=== PATIENT | male | born 1950 ===

== ENCOUNTER 2017-01-03 12:42 | Emergency (ER) | payer MEDICARE, OTHER ==
[2017-01-03 12:48] VITALS: BP 128/76
[2017-01-03] MEDS ORDERED: Sodium Chloride 0.9% 10 ML Syringe FLUSH PRN (12:58)
[2017-01-03] MEDS ORDERED: Sodium Chloride 0.9% 500 ML IV ONE (13:06)
--- NOTE | 2017-01-03 13:08 | EDM.PDOC ---
ED HPI GENERAL MEDICAL PROBLEM - General Chief Complaint: Abdominal Pain Stated Complaint: [facility] Time Seen by Provider: 01/03/17 12:48 Source of Information: Reports: Patient History Limitations: Reports: No Limitations - History of Present Illness INITIAL COMMENTS - FREE TEXT/NARRATIVE: 58-year-old male presents via [facility] for evaluation treatment of right lower quadrant abdominal pain radiating to the right flank and back. Reports that the pain started suddenly today. Reports early this morning he had pain that lasted about 30-45 minutes but then resolved on its own. States the pain then came back and has been constant since. He was given 2 mg of Dilaudid and 4 mg of Zofran en route to the ER. Reports that his pain is now significantly improved. He denies any pain radiating to the groin. States he's never had anything like this before. Denies any associated fevers, chills, coughs, dysuria, hematuria, diarrhea or constipation. Reports nausea and vomiting from the pain. States he has vomited 12 times today. Does not recall his last bowel movement. Denies any previous abdominal surgeries. Onset: Today, Sudden Location: Reports: Abdomen (RLQ), Other (right flank) Improves with: Reports: Medication Treatments ASSISTANT COMMUNITY DIRECTOR: Reports: IV/IO, Other (see below) (2mg Dilaudid and 4mg Zofran) Other Treatments ASSISTANT COMMUNITY DIRECTOR: Zofran 4 mg IV, Dilaudid 2 mg IV and 500 ml of NS Right Lower Abdominal Pain Score (Numeric/FACES): 1 - Related Data Allergies Allergy/AdvReac Type Severity Reaction Status Date / Time No Known Allergies Allergy Verified 01/03/17 12:44 Home Meds: Home Meds Acetaminophen/oxyCODONE [Percocet 325-5 MG] 1 tab PO Q4H PRN #20 tablet [Rx] Tamsulosin [Flomax] 0.4 mg PO BEDTIME 01/03/17 [History] Past Medical History Genitourinary History: Reports: Prostate Disorder Social & Family History - Tobacco Use Smoking Status *Q: Current Every Day Smoker Years of Tobacco use: 50 Packs/Tins Daily: 0.5 - Recreational Drug Use Recreational Drug Use: No ED ROS GENERAL - Review of Systems Review Of Systems: See Below Constitutional: Denies: Fever, Chills Respiratory: Denies: Cough GI/Abdominal: Reports: Abdominal Pain (RLQ), Nausea, Vomiting : Reports: Flank Pain (right). Denies: Dysuria, Hematuria ED EXAM, RENAL/ - Physical Exam Exam: See Below Exam Limited By: No Limitations General Appearance: Alert, WD/WN, No Apparent Distress Throat/Mouth: Normal Inspection, Normal Voice, No Airway Compromise Respiratory/Chest: No Respiratory Distress, Lungs Clear, Normal Breath Sounds Cardiovascular: Normal Peripheral Pulses, Regular Rate, Rhythm, No Murmur GI/Abdominal: Normal Bowel Sounds, Soft, Tender (RLQ). No: Distended, Guarding Back Exam: Normal Inspection Neurological: Alert, Oriented, Normal Cognition Psychiatric: Normal Affect, Normal Mood Skin Exam: Warm, Dry Course - Vital Signs Last Recorded V/S: Last Vital Signs Temp 36.7 C 01/03/17 12:44 Pulse 72 01/03/17 12:44 Resp 10 L 01/03/17 12:44 BP 128/76 01/03/17 12:44 Pulse Ox 96 01/03/17 12:44 - Orders/Labs/Meds Labs: Laboratory Tests 01/03/17 01/03/17 Range/Units 13:15 13:15 WBC 14.37 H (4.23-9.07) K/mm3 RBC 4.98 (4.63-6.08) M/mm3 Hgb 16.3 (13.7-17.5) gm/L Hct 47.7 (40.1-51.0) % MCV 95.8 H (79.0-92.2) fl MCH 32.7 H (25.7-32.2) pg MCHC 34.2 (32.2-35.5) g/dl RDW Std Deviation 45.2 H (35.1-43.9) fL Plt Count 229 (163-337) K/mm3 MPV 9.9 (9.4-12.3) fl Neutrophils % (Manual) 80 H (40-60) % Band Neutrophils % 0 (0-10) % Lymphocytes % (Manual) 19 L (20-40) % Atypical Lymphs % 0 % Monocytes % (Manual) 1 L (2-10) % Eosinophils % (Manual) 0 L (0.8-7.0) % Basophils % (Manual) 0 L (0.2-1.2) Platelet Estimate Adequate RBC Morph Comment Not Reportable Sodium 142 (136-145) mEq/L Potassium 4.8 (3.5-5.1) mEq/L Chloride 108 H (98-107) mEq/L Carbon Dioxide 27 (21-32) mEq/L Anion Gap 11.8 (5-15) BUN 21 H (7-18) mg/dL Creatinine 1.2 (0.7-1.3) mg/dL Est Cr Clr Drug Dosing 53.17 mL/min Estimated GFR (MDRD) > 60 (>60) mL/min BUN/Creatinine Ratio 17.5 (14-18) Glucose 104 (80-115) mg/dL Calcium 8.8 (8.5-10.1) mg/dL Total Bilirubin 0.4 (0.2-1.0) mg/dL AST 21 (15-37) U/L ALT 21 (16-63) U/L Alkaline Phosphatase 85 (46-116) U/L C-Reactive Protein < 0.2 (<1.0) mg/dL Total Protein 7.3 (6.4-8.2) g/dl Albumin 3.5 (3.4-5.0) g/dl Globulin 3.8 gm/dL Albumin/Globulin Ratio 0.9 L (1-2) Meds: Medications Discontinued Medications Generic Name Dose Route Start Last Admin Trade Name Sukhi PRN Reason Stop Dose Admin Hydromorphone HCl 1 mg 01/03/17 13:37 01/03/17 13:43 Dilaudid IVPUSH 01/03/17 13:38 1 mg ONETIME ONE Administration Sodium Chloride 500 mls @ 500 mls/hr 01/03/17 13:06 01/03/17 13:27 Normal Saline IV 01/03/17 14:05 500 mls/hr ONETIME ONE Administration Sodium Chloride 1,000 mls @ 100 mls/hr 01/03/17 14:19 01/03/17 15:30 Normal Saline IV 01/04/17 00:18 100 mls/hr ONETIME ONE Administration Ketorolac Tromethamine 30 mg 01/03/17 15:10 01/03/17 15:17 Toradol IVPUSH 01/03/17 15:11 30 mg ONETIME ONE Administration Sodium Chloride 10 ml 01/03/17 12:58 01/03/17 13:29 Saline Flush FLUSH 10 ml ASDIRECTED PRN Administration Keep Vein Open - Radiology Interpretation Free Text/Narrative:: CT of the abdomen and pelvis without IV or oral contrast impression per V grad: 3 x 5 distantly obstructing right ureteral calculus at the UV junction associated with moderate proximal hydronephrosis ureteral nephrosis. Local ice thickening of the ureteral wall possibly related to inflammation demonstrated adjacent to the calculus. 5 mm nonobstructing intrarenal calculus. Left upper pole renal cyst. Moderate prostatomegaly. CT Results Date: 01/03/17 - Re-Assessments/Exams Free Text/Narrative Re-Assessment/Exam: 01/03/17 15:[address] returned. I reviewed these with the patient. Stone is near the UVJ and will likely pass on its own. I will have him follow-up with urology for the stone and his prostate. Will discharge home with pain medication and have him continue to take his flomax. Instructed to drink plenty of fluids. Departure - Departure Time of Disposition: 15:02 Disposition: Home, Self-Care 01 Condition: Fair Clinical Impression: Nephrolithiasis - Discharge Information Prescriptions: Acetaminophen/oxyCODONE [Percocet 325-5 MG] 1 tab PO Q4H PRN #20 tablet PRN Reason: Pain Instructions: Kidney Stones, [id number] Referrals: Homar Nguyễn MD [Ordering Only Provider] - Forms: ED Department Discharge Additional Instructions: you were given medication in the ER that can affect your ability to drive and operate machinery. Do not drive or operate machinery within 12 hours of taking narcotic pain medication. Continue on your Flomax. make sure your are drinking plenty of fluids. Percocet 1-2 tabs every 4-6 hours as needed for pain. Do not drive or operate machinery within 12 hours of taking the Percocet. Percocet can be habit-forming , I recommend you take as few of these as needed to control your pain. Follow-up with urology. Recommend Dr. Nguyễn at the [facility] in [place]. Please call [phone] to schedule appointment with him. Please let them know that you had a 3 x 5 mm distally obstructing calculus in the right ureter at the UVJ. You were also found to have a 5mm nonobstructing stone on in the left kidney and prostatomeglay on CT. Recommend establishing with a primary care provider. [place] see Delores Mcleod, Amber Simmons or Feliberto Sullivan. Please return to the ER if your symptoms change or worsen.
[2017-01-03] MEDS ORDERED: HYDROmorphone 1 MG/ML Syringe IVPUSH ONE (13:37)
[2017-01-03] MEDS ORDERED: Sodium Chloride 0.9% 1,000 ML IV ONE (14:19)
[2017-01-03] MEDS ORDERED: Ketorolac 30 MG/ML SDV IVPUSH ONE (15:10)
--- NOTE | 2017-01-05 10:25 | CT ---
CT abdomen and pelvis Technique: Multiple axial sections were obtained from above the dome of the diaphragm inferiorly through the pubic symphysis. Intravenous and oral contrast was not utilized. Study has been performed as a ureteral stone protocol. Findings: Right ureter is dilated. This finding is caused by a 5.3 mm obstructing stone within the distal right ureter located near the UVJ. No other abnormal calcifications are seen along the course of the kidneys. No renal calculi are seen on the right side. There is a nonobstructing stone within the left kidney measuring about 5.8 mm. Small cyst is identified off the upper pole of the left kidney measuring about 1.6 cm in size. Visualized lung bases show nothing acute. Liver shows no focal abnormality. Small hiatal hernia is seen. Spleen appears within normal limits. Gallbladder shows no calcified gallstones. Small nodule is noted within the ariadna of the left adrenal gland which shows some negative Hounsfield unit measurements and likely is incidental and benign. Pancreas is within normal limits. Aorta shows mild atherosclerotic change without aneurysm. No retroperitoneal adenopathy or mesenteric abnormalities are seen. No pelvic mass or adenopathy is seen. Prostate gland slightly prominent containing calcifications. No inflammatory change or free fluid is seen. Appendix is seen which is normal. Mild diverticuli are seen within the sigmoid colon and more prominent diverticuli throughout the descending colon. No inflammatory change seen to indicate diverticulitis. Bone window settings were reviewed which show a calcification within the left side of the pelvis most likely representing bone island. Degenerative spurring is noted throughout the spine. Impression: 1. Right sided hydronephrosis is caused by a 5.3 mm obstructing stone within the distal right ureter close to the UVJ. 2. 5.8 mm stone which is nonobstructing within the left kidney. 3. Other incidental findings as described above. Diagnostic code #3 Agree with preliminary report issued by [facility] ([email or web address] preliminary report dictated on 01/03/17, 3:31 PM Central Time)
== END 2017-01-03 15:25 | disposition home or self-care (01) ==
LOC: JD.ED 12:42
DX: N13.2 Hydronephrosis with renal and ureteral calculous obstruction (principal); F17.210 Nicotine dependence, cigarettes, uncomplicated
CPT/HCPCS: 36415; 74176; 80053; 85025; 86140; 96361; 96374; 96375; 99285; J1170; J1885; J7040; J7050; 99284